=== PATIENT | female | born 1975 | race Caucasian/White ===

== ENCOUNTER 2018-03-14 10:26 | Emergency (ER) | payer MEDICAID ==
[~2018-03-14] VITALS: Ht 167.6 cm; Wt 109.1 kg
[~2018-03-14 10:26] MED LIST: DETROL LA4 MG OR; FLAGYL500 MG OR; KLONOPIN1 MG PO; LEVAQUIN500 MG OR; LOPRESSOR25 MG PO; MOTRIN600 MG PO; NEXIUM40 MG PO; PERCOCET 5/3251 TA1 PO; WELLBUTRIN75 MG PO
[2018-03-14 10:38] VITALS: Ht 167.6 cm; Wt 109.1 kg
[2018-03-14] MEDS ORDERED: BACTRIM 400-801 TAB PO (10:40)
[2018-03-14] MEDS ORDERED: TORADOL10 MG PO (11:30)
[2018-03-14 12:00] VITALS: BP 137/89
== END 2018-03-14 12:00 | disposition home or self-care (01) ==
LOC: D.ER 10:26
DX: S69.91XA Unspecified injury of right wrist, hand and finger(s), initial encounter (principal); X58.XXXA Exposure to other specified factors, initial encounter; Y93.89 Activity, other specified; Y92.89 Other specified places as the place of occurrence of the external cause; F17.200 Nicotine dependence, unspecified, uncomplicated

== ENCOUNTER 2018-06-28 14:46 | Emergency (ER) | payer MEDICAID ==
[~2018-06-28] VITALS: Ht 167.6 cm; Wt 118.2 kg
[~2018-06-28 14:46] MED LIST changes: +BACTRIM 400-801 TAB PO; +TORADOL10 MG PO
[2018-06-28 14:50] VITALS: BP 147/91; Ht 167.6 cm; Wt 118.2 kg
[2018-06-28] MEDS ORDERED: KLONOPIN1 MG PO (14:52)
[2018-06-28] MEDS ORDERED: ALBUTEROL SULF8.5 GM INH (14:53)
[2018-06-28] MEDS ORDERED: CLEOCIN HCL150 MG PO (14:53)
[2018-06-28 15:41] LABS: BASOPHILS 0.2 % (0-2); EOSINOPHILS 3.5 % (0-7); HEMATOCRIT 42.3 % (36.0-48.0); HEMOGLOBIN 14.7 g/dL (12-16); IMMATURE GRANULOCYTES 0.4 % (0-5); LYMPHOCYTES 41.1 % (15-50); MCH 31.4 pg (26.0-34.0); MCHC 34.8 g/dL (31.0-37.0); MCV 90.4 fL (80.0-100.0); MEAN PLATELET VOLUME 11.5 fL (7.4-10.4); MONOCYTES 8.3 % (2-11); NEUTROPHILS 46.5 % (40-80); PLATELET COUNT 178 10x3/uL (130-400); RBC 4.68 10x6/uL (4.00-5.40); RDW 12.6 % (11.5-14.5); WBC 8.2 10x3/uL (4.8-10.8)
[2018-06-28 16:02] LABS: ALBUMIN 3.4 g/dL (3.4-5.0); ALKALINE PHOSPHATASE 93 U/L (46-116); ALT (SGPT) 40 U/L (10-68); CALC OSMOLALITY 279 mosm/kg (275-300); CALCIUM 8.4 mg/dL (8.5-10.1); CHLORIDE - SERUM 104 mmol/L (98-107); CREATININE - SERUM 0.8 mg/dL (0.6-1.3); GLUCOSE 90 mg/dL (74-106); POTASSIUM - SERUM 3.9 mmol/L (3.5-5.1); PROTEIN - SERUM 7.1 g/dL (6.4-8.2); SODIUM 141 mmol/L (136-145); UREA NITROGEN 9 mg/dL (7-18); eGFR NON AFRICAN AMERICAN 82 mL/min (90-120)
[2018-06-28 16:05] LABS: CKMB 1.3 U/L (0.0-3.6); PRO BNP 84 pg/mL (0-125); TROPONIN-I < 0.017 ng/mL (0.000-0.060)
[2018-06-28] MEDS ORDERED: ZPAK PO (17:10)
[2018-06-28] MEDS ORDERED: TESSALON PERLE100 MG PO (17:10)
[2018-06-28] MEDS ORDERED: PREDNISONE10 MG PO (17:10)
== END 2018-06-28 17:28 | disposition home or self-care (01) ==
LOC: D.ER 14:46
PROVIDERS: Family Medicine
DX: J20.9 Acute bronchitis, unspecified (principal); R06.2 Wheezing; R09.89 Other specified symptoms and signs involving the circulatory and respiratory systems

== ENCOUNTER 2018-07-20 08:41 | Emergency (ER) | payer MEDICAID ==
[~2018-07-20] VITALS: Ht 167.6 cm; Wt 94.1 kg
[~2018-07-20 08:41] MED LIST changes: +ALBUTEROL SULF8.5 GM INH; +CLEOCIN HCL150 MG PO; +PREDNISONE10 MG PO; +TESSALON PERLE100 MG PO; +ZPAK PO
[2018-07-20 08:49] VITALS: Ht 167.6 cm; Wt 94.1 kg
[2018-07-20] MEDS ORDERED: HYDROCHLOROTH12.5 M1 PO (08:54)
[2018-07-20 09:44] LABS: APPEARANCE CLEAR (CLEAR); BILIRUBIN NEGATIVE (NEGATIVE); COLOR YELLOW (YELLOW); GLUCOSE NEGATIVE (NEGATIVE); KETONE NEGATIVE (NEGATIVE); NITRITE NEGATIVE (NEGATIVE); PROTEIN NEGATIVE (NEGATIVE); UROBILINOGEN NORMAL (NORMAL)
[2018-07-20 10:13] LABS: BASOPHILS 0.3 % (0-2); EOSINOPHILS 2.1 % (0-7); HEMATOCRIT 42.3 % (36.0-48.0); HEMOGLOBIN 14.7 g/dL (12-16); IMMATURE GRANULOCYTES 0.4 % (0-5); MCH 31.3 pg (26.0-34.0); MCHC 34.8 g/dL (31.0-37.0); MONOCYTES 5.5 % (2-11); NEUTROPHILS 53.7 % (40-80); PLATELET COUNT 196 10x3/uL (130-400); RDW 12.3 % (11.5-14.5); WBC 9.6 10x3/uL (4.8-10.8)
[2018-07-20 10:31] LABS: ALBUMIN 3.5 g/dL (3.4-5.0); ALKALINE PHOSPHATASE 93 U/L (46-116); ALT (SGPT) 34 U/L (10-68); AMYLASE - SERUM 45 U/L (25-115); BILIRUBIN - TOTAL 0.38 mg/dL (0.2-1.3); CALC OSMOLALITY 274 mosm/kg (275-300); CALCIUM 8.5 mg/dL (8.5-10.1); CARBON DIOXIDE 25.2 mmol/L (21.0-32.0); CHLORIDE - SERUM 104 mmol/L (98-107); CREATININE - SERUM 0.8 mg/dL (0.6-1.3); GLUCOSE 94 mg/dL (74-106); LIPASE 111 U/L (73-393); POTASSIUM - SERUM 4.1 mmol/L (3.5-5.1); PROTEIN - SERUM 7.2 g/dL (6.4-8.2); SODIUM 138 mmol/L (136-145); UREA NITROGEN 11 mg/dL (7-18); eGFR NON AFRICAN AMERICAN 82 mL/min (90-120)
[2018-07-20] MEDS ORDERED: PROTONIX40 MG PO (10:56)
[2018-07-20 11:02] VITALS: BP 148/98
== END 2018-07-20 11:03 | disposition home or self-care (01) ==
LOC: D.ER 08:41
PROVIDERS: Family Medicine
DX: K29.70 Gastritis, unspecified, without bleeding (principal); K04.7 Periapical abscess without sinus; F17.200 Nicotine dependence, unspecified, uncomplicated

== ENCOUNTER 2019-07-04 20:10 | Emergency (ER) | payer MEDICAID ==
[~2019-07-04] VITALS: Ht 167.6 cm; Wt 118.2 kg
[~2019-07-04 20:10] MED LIST changes: +HYDROCHLOROTH12.5 M1 PO; +PROTONIX40 MG PO
[2019-07-04 20:16] VITALS: Ht 167.6 cm; Wt 118.2 kg
[2019-07-04] MEDS ORDERED: HYDROCODON-ACE1 EAC2 PO (22:48)
[2019-07-04 23:11] VITALS: BP 131/86
== END 2019-07-04 23:11 | disposition home or self-care (01) ==
LOC: D.ER 20:10
DX: S43.402A Unspecified sprain of left shoulder joint, initial encounter (principal); W19.XXXA Unspecified fall, initial encounter

== ENCOUNTER 2019-07-29 13:58 | Emergency (ER) | payer MEDICAID ==
[2019-07-04 20:16] VITALS: BMI 42.0
[~2019-07-29 13:58] MED LIST changes: +HYDROCODON-ACE1 EAC2 PO
[2019-07-30] MEDS ORDERED: FLAGYL500 MG PO (01:29)
[2019-07-30] MEDS ORDERED: LEVAQUIN750 MG PO (04:50)
== END 2019-07-29 15:02 | disposition left against medical advice (07) ==
LOC: D.ER 13:58
DX: R10.30 Lower abdominal pain, unspecified (principal)

== ENCOUNTER 2019-07-30 01:08 | Emergency (ER) | payer MEDICAID ==
[~2019-07-30] VITALS: Ht 167.6 cm; Wt 134.5 kg
[2019-07-30 01:25] VITALS: Ht 167.6 cm; Wt 134.5 kg
[2019-07-30] MEDS ORDERED: FLAGYL500 MG PO (01:29)
[2019-07-30 01:47] LABS: BASOPHILS 0.2 % (0-2); EOSINOPHILS 3.2 % (0-7); HEMATOCRIT 45.2 % (36.0-48.0); HEMOGLOBIN 15.3 g/dL (12-16); IMMATURE GRANULOCYTES 0.4 % (0-5); LYMPHOCYTES 42.6 % (15-50); MCHC 33.8 g/dL (31.0-37.0); MCV 91.7 fL (80.0-100.0); MEAN PLATELET VOLUME 10.9 fL (7.4-10.4); MONOCYTES 5.5 % (2-11); NEUTROPHILS 48.1 % (40-80); PLATELET COUNT 198 10x3/uL (130-400); RBC 4.93 10x6/uL (4.00-5.40); RDW 12.7 % (11.5-14.5); WBC 13.1 10x3/uL (4.8-10.8)
[2019-07-30 01:52] LABS: CALC OSMOLALITY 271 mosm/kg (275-300); CALCIUM 8.4 mg/dL (8.5-10.1); CHLORIDE - SERUM 103 mmol/L (98-107); CREATININE - SERUM 0.8 mg/dL (0.6-1.3); GLUCOSE 114 mg/dL (74-106); POTASSIUM - SERUM 3.6 mmol/L (3.5-5.1); SODIUM 136 mmol/L (136-145); UREA NITROGEN 10 mg/dL (7-18); eGFR NON AFRICAN AMERICAN 82 mL/min (90-120)
[2019-07-30 02:00] LABS: ALBUMIN 3.2 g/dL (3.4-5.0); ALKALINE PHOSPHATASE 108 U/L (30-120); ALT (SGPT) 67 U/L (10-68); AMYLASE - SERUM 39 U/L (25-115); BILIRUBIN - TOTAL 0.29 mg/dL (0.2-1.3); LIPASE 110 U/L (73-393); TROPONIN-I < 0.017 ng/mL (0.000-0.060)
[2019-07-30 02:06] LABS: HCG URINE NEGATIVE (NEGATIVE)
[2019-07-30 02:07] LABS: APPEARANCE HAZY (CLEAR); BILIRUBIN NEGATIVE (NEGATIVE); COLOR YELLOW (YELLOW); GLUCOSE NEGATIVE (NEGATIVE); KETONE NEGATIVE (NEGATIVE); NITRITE NEGATIVE (NEGATIVE); PROTEIN NEGATIVE (NEGATIVE); UROBILINOGEN NORMAL (NORMAL)
[2019-07-30 02:08] LABS: BACTERIA MODERATE /hpf (NEGATIVE); EPITHELIAL CELLS 0-5 /hpf (0-5); RED CELLS - URINE 0-5 /hpf (0-5)
[2019-07-30] MEDS ORDERED: LEVAQUIN750 MG PO (04:50)
[2019-07-30 05:02] VITALS: BP 119/76
== END 2019-07-30 04:58 | disposition home or self-care (01) ==
LOC: D.ER 01:08
PROVIDERS: Family Medicine
DX: R10.9 Unspecified abdominal pain (principal); K59.00 Constipation, unspecified; N39.0 Urinary tract infection, site not specified

== ENCOUNTER 2019-09-24 14:06 | Emergency (ER) | payer MEDICAID ==
[~2019-09-24] VITALS: Ht 167.6 cm; Wt 113.6 kg
[~2019-09-24 14:06] MED LIST changes: +FLAGYL500 MG PO; +LEVAQUIN750 MG PO; +MUCINEX DM ER1 EAC1 PO; +OMNICEF300 MG PO
[2019-09-24 14:12] VITALS: BP 147/84; Ht 167.6 cm; Wt 113.6 kg
[2019-09-24] MEDS ORDERED: ZOLOFT100 MG PO (14:14)
[2019-09-24] MEDS ORDERED: OMNICEF300 MG PO (14:36)
== END 2019-09-24 15:06 | disposition home or self-care (01) ==
LOC: D.ER 14:06
DX: S81.052A Open bite, left knee, initial encounter (principal); W54.0XXA Bitten by dog, initial encounter; Y93.9 Activity, unspecified; Y92.9 Unspecified place or not applicable

== ENCOUNTER 2020-01-07 14:43 | Emergency (ER) | payer MEDICAID ==
[2019-09-24 14:12] VITALS: BMI 40.4
[~2020-01-07 14:43] MED LIST changes: +ZOLOFT100 MG PO
== END 2020-01-07 15:00 | disposition left against medical advice (07) ==
LOC: D.ER 14:43
DX: H92.09 Otalgia, unspecified ear (principal); R11.10 Vomiting, unspecified